=== PATIENT | male | born 1975 | race Caucasian/White ===

== ENCOUNTER → 2022-11-13 | Outpatient (CLI) | payer MEDICARE, SELFPAY ==
--- NOTE | 2022-11-13 10:43 | MRI_ITS ---
EXAM: MR RIGHT LOWER EXTREMITY WITHOUT INTRAVENOUS CONTRAST, KNEE CLINICAL INDICATION: SPRAIN OF OTHER SPECIFIED PARTS OF RIGHT KNEE, INIT ENCNTR TECHNIQUE: Multiplanar and multisequence MR images of the right knee without intravenous contrast. This report was created using [employer] technology. COMPARISON: None. FINDINGS: BONES/JOINTS: No other concerning marrow signal alterations. EXTENSOR MECHANISM: Unremarkable. MEDIAL MENISCUS: Unremarkable. LATERAL MENISCUS: Unremarkable. MEDIAL CAPSULE/SUPPORTING STRUCTURES: Unremarkable. Intact. LATERAL CAPSULE/SUPPORTING STRUCTURES: Unremarkable. Lateral collateral ligamentous complex, inclusive of the popliteal tendon, are intact. ANTERIOR CRUCIATE LIGAMENT: Unremarkable. Intact. POSTERIOR CRUCIATE LIGAMENT: Unremarkable. Intact. MUSCLES: Unremarkable. CARTILAGE: Areas of moderate to high-grade chondral fissuring involving the median ridge of the patella and the central aspect of the medial patellar facet with small focus of irregular subchondral signal alteration at the median ridge. FLUID: Very small amount of suprapatellar joint fluid. No Shaw''s cyst. No joint effusion. OTHER SOFT TISSUES: See above. MRI/Lower Ext Joint Only (Routine) IMPRESSION: Areas of moderate to high-grade chondral fissuring involving the median ridge of the patella and the central aspect of the medial patellar facet with small focus of irregular subchondral signal alteration at the median ridge. Electronically Signed: Joshua Calderón MD at 1:39 EST ,
== END | disposition home or self-care (01) ==
LOC: MRI 10:02
PROVIDERS: PCP Family Medicine; Referring Provider Physician Assistant Surgical; Visit Provider Physician Assistant Surgical
DX: S83.8X1A Sprain of other specified parts of right knee, initial encounter (principal)
CPT/HCPCS: 73721